=== PATIENT | female | born 1970 ===

== ENCOUNTER 2017-07-14 09:33 | Emergency (ER) | payer OTHER ==
[2017-07-14 09:52] VITALS: BMI 32.0
[2017-07-14 09:55] VITALS: TEMP 98.4; O2SAT 99
[2017-07-14] MEDS ORDERED: Naproxen 550 mg Tab PO STA (10:41)
--- NOTE | 2017-07-14 10:44 | C.PDOC ---
History Of Present Illness 46 y/o female presents to the ER complaining of runny nose, sore throat, productive cough, and pleuritic pain in the chest and upper back which has been present for 2 days. Patient denies having fever, shortness of breath, nausea, vomiting, diarrhea, and abdominal pain. Patient does not have any other complaints. Time Seen by Provider: 07/14/17 10:06 Chief Complaint (Nursing): Chest Pain History Per: Patient History/Exam Limitations: no limitations Onset/Duration Of Symptoms: Days Current Symptoms Are (Timing): Still Present Severity: Moderate Past Medical History Reviewed: Historical Data, Nursing Documentation, Vital Signs Vital Signs: Last Vital Signs Temp 98.4 F 07/14/17 09:53 Pulse 72 07/14/17 10:54 Resp 18 07/14/17 10:54 BP 125/78 07/14/17 10:54 Pulse Ox 99 07/14/17 13:37 - Medical History PMH: Anemia Surgical History: No Surg Hx - [facility] Procedures CLOSED BIOPSY OF UTERUS (10/28/14) D & C NEC (10/28/14) Family History: States: No Known Family Hx - Social History Hx Tobacco Use: No Hx Alcohol Use: No Hx Substance Use: No - Immunization History Hx Tetanus Toxoid Vaccination: No Hx Influenza Vaccination: No Hx Pneumococcal Vaccination: No Review Of Systems Constitutional: Negative for: Fever, Chills ENT: Positive for: Nose Discharge, Throat Pain Cardiovascular: Positive for: Chest Pain Respiratory: Positive for: Cough Gastrointestinal: Negative for: Nausea, Vomiting, Abdominal Pain, Diarrhea Musculoskeletal: Positive for: Back Pain Physical Exam - Physical Exam Appears: Non-toxic, No Acute Distress, Other (comfortable, coughing occasionally ,speaking in full sentences) Skin: Normal Color, Warm Head: Atraumatic, Normacephalic Eye(s): bilateral: Normal Inspection, PERRL Ear(s): Bilateral: Normal Nose: Normal Oral Mucosa: Moist Throat: Erythema (mildly erythematous), No Exudate, Other (no tonsillar swelling ) Neck: Supple Chest: Symmetrical Cardiovascular: Rhythm Regular Respiratory: Normal Breath Sounds, No Accessory Muscle Use, No Rales, No Rhonchi , No Wheezing Gastrointestinal/Abdominal: Normal Exam, Soft, No Tenderness Extremity: Normal ROM Neurological/Psych: Oriented x3, Normal Speech, Normal Cognition, Normal Motor, Normal Sensation ED Course And Treatment O2 Sat by Pulse Oximetry: 99 (RA) Pulse Ox Interpretation: Normal Progress Note: Patient given Naproxen. CXR is negative and shows no infiltrates. Patient has been discharged with prescription for Tessalon Perles and Naproxen and told to follow up with PCP in 1-2 days. Disposition Counseled Patient/Family Regarding: Studies Performed, Diagnosis, Need For Followup, Rx Given - Disposition Referrals: [facility] [Outside] Disposition: HOME/ ROUTINE Disposition Time: 10:45 Condition: STABLE Additional Instructions: FOLLOW UP WITH YOUR DOCTOR/CLINIC IN 1-2 DAYS USE MEDICATIONS NEEDED DRINK PLENTY OF FLUIDS RETURN TO ER IF SYMPTOMS WORSEN SEGUIMIENTO CON FERNANDEZ MDICO / CLNICA EN 1-2 BECK USE MEDICAMENTOS SEGN SEA NECESARIO BEBER MUCHO LQUIDO VOLVER A ER SI LOS SNTOMAS EMPEORAN Prescriptions: Benzonatate [Tessalon Perles] 100 mg PO BID PRN #15 sgl PRN Reason: Cough Naproxen 375 mg PO BID PRN #20 tablet PRN Reason: pain Phenol/Glycerin [Chloraseptic [place]] 1 spray MM Q6 PRN #1 spray PRN Reason: THROAT PAIN Instructions: Upper Respiratory Infection (ED), Viral Syndrome (ED) Forms: [employer] (Spanish) Print Language: DJIBOUTIAN - POA Present On Arrival: None - Clinical Impression Clinical Impression: Viral upper respiratory illness - Scribe Statement The provider has reviewed the documentation as recorded by the Tamika Benavides Provider Attestation: All medical record entries made by the Kendallibe were at my direction and personally dictated by me. I have reviewed the chart and agree that the record accurately reflects my personal performance of the history, physical exam, medical decision making, and the department course for this patient. I have also personally directed, reviewed, and agree with the discharge instructions and disposition.
[2017-07-14] MEDS ORDERED: Naproxen 550 mg Tab PO ONE (10:50)
[2017-07-14 10:55] VITALS: BP 125/78; PULSE 72; RESP 18
--- NOTE | 2017-07-14 11:25 | RAD ---
HISTORY: cough, chest pain COMPARISON: Comparison made with chest radiograph 09/12/2015 TECHNIQUE: Chest PA and lateral FINDINGS: LUNGS: No active pulmonary disease. All calcified granuloma measure approximately 3.5 mm right lateral mid to lower lung PLEURA: No significant pleural effusion identified. No pneumothorax apparent. CARDIOVASCULAR: Normal. OSSEOUS STRUCTURES: No significant abnormalities. VISUALIZED UPPER ABDOMEN: Normal. OTHER FINDINGS: None. IMPRESSION: No active disease.
== END 2017-07-14 10:55 | disposition home or self-care (01) ==
LOC: C.ER 09:33
DX: J06.9 Acute upper respiratory infection, unspecified (principal)